=== PATIENT | female | born 1995 | race American Indian/Alaskan Native ===

== ENCOUNTER 2017-03-11 10:47 | Emergency (ER) | payer SELFPAY ==
[2017-03-11 10:54] VITALS: BP 132/90
--- NOTE | 2017-03-11 11:06 | Emergency Department Report ---
ED Lower Extremity HPI - General Chief Complaint: Extremity Injury, Lower Stated Complaint: RT ANKLE PAIN/POSS SPRAIN Time Seen by Provider: 03/11/17 11:01 Source: patient Mode of arrival: Ambulatory Limitations: No Limitations - History of Present Illness MD Complaint: ankle injury -: Sudden Injury: Hip: Left, Pelvis: Left, Thigh: Left, Leg: Left, Knee: Left, Ankle: Right, Foot: Left, Toes: Left Type of Injury: other (sp fall on it on continued pain karon when working at [employer]) Place: home Severity: mild Improves With: immobilization Context: walking Associated Symptoms: swelling (lateral). denies: snap/pop sensation, numbness, tingling - Related Data Allergies Allergy/AdvReac Type Severity Reaction Status Date / Time No Known Allergies Allergy Unverified 03/11/17 10:51 ED Review of Systems ROS: Stated complaint: RT ANKLE PAIN/POSS SPRAIN Other details as noted in HPI Comment: All other systems reviewed and negative Constitutional: no symptoms reported Eyes: as per HPI ENT: as per HPI Respiratory: no symptoms reported Cardiovascular: as per HPI Endocrine: no symptoms reported Gastrointestinal: as per HPI Genitourinary: as per HPI Musculoskeletal: as per HPI, joint swelling. denies: back pain, arthralgia, myalgia Skin: as per HPI. denies: rash Neurological: as per HPI Psychiatric: as per HPI Hematological/Lymphatic: as per HPI ED Past Medical Hx - Past Medical History Previous Medical History?: No - Surgical History Past Surgical History?: No - Family History Family history: no significant - Social History Smoking Status: Current Some Day Smoker Substance Use Type: Alcohol, Marijuana ED Physical Exam - General Limitations: No Limitations General appearance: alert, in no apparent distress - Head Head exam: Present: atraumatic - Eye Eye exam: Present: normal appearance - ENT ENT exam: Present: normal exam, mucous membranes moist - Neck Neck exam: Present: normal inspection. Absent: tenderness, meningismus - Respiratory Respiratory exam: Present: normal lung sounds bilaterally. Absent: respiratory distress, wheezes, rales, rhonchi, stridor - Cardiovascular Cardiovascular Exam: Present: regular rate, normal rhythm, other (hr 90 on exam) . Absent: bradycardia, tachycardia, irregular rhythm - GI/Abdominal GI/Abdominal exam: Present: soft, normal bowel sounds. Absent: distended, tenderness, guarding, rebound, rigid, diminished bowel sounds, hyperactive bowel sounds, hypoactive bowel sounds, organomegaly, mass, bruit, pulsatile mass , hernia - Rectal Rectal exam: Present: deferred - Extremities Exam Extremities exam: Present: normal inspection, full ROM, tenderness - Expanded Lower Extremity Exam Right Hip exam: Present: normal inspection, full ROM. Absent: tenderness, swelling, abrasion Upper Leg exam: Present: normal inspection, full ROM. Absent: tenderness, swelling Knee exam: Present: normal inspection, full ROM. Absent: tenderness, swelling Lower Leg exam: Present: normal inspection, full ROM. Absent: tenderness Ankle exam: Present: normal inspection, full ROM, tenderness, swelling (mild lat mal). Absent: abrasion, laceration, ecchymosis, deformity, crepidus, dislocation, erythema, anterior draw sign Foot/Toe exam: Present: normal inspection, full ROM. Absent: tenderness Neuro vascular tendon exam: Present: no vascular compromise. Absent: pulse deficit, abnormal cap refill, motor deficit, sensory deficit, tendon deficit Gait: Positive: observed and normal. Negative: not tested/not observed, observed and limited by pain 1 - mild swelling 10 d p injury. nv intact. good pulses - Back Exam Back exam: Present: normal inspection, full ROM. Absent: tenderness, CVA tenderness (R), CVA tenderness (L) - Neurological Exam Neurological exam: Present: alert, altered, oriented X3 - Psychiatric Psychiatric exam: Present: normal affect, normal mood, anxious (seesm worried about her stomach) - Skin Skin exam: Present: warm, dry, intact, normal color. Absent: rash ED Course Vital Signs 03/11/17 10:51 Temperature 97.7 F Pulse Rate 96 H Respiratory 20 Rate Blood Pressure 132/90 O2 Sat by Pulse 100 Oximetry - Reevaluation(s) Reevaluation #1: 03/11/17 fall 10 days ago w persistent pain lat mal area ambulatory mild swelling full rom xray noted junaid/crutch for sprain follow up with ortho to be sure heals. vss on dc ED Lower Extremity MDM - Radiology Data Radiology results: image reviewed - Medical Decision Making xray nap - Differential Diagnosis fracture v sprain Critical care attestation.: If time is entered above; I have spent that time in minutes in the direct care of this critically ill patient, excluding procedure time. ED Disposition Clinical Impression: Ankle sprain Disposition: DC- TO HOME OR SELFCARE Is pt being admited?: No Does the pt Need Aspirin: No Condition: Stable Instructions: Ankle Sprain (ED) Additional Instructions: ice rest elevate motrin or tylenol for pain follow up with ortho to be sure this heals junaid bandage until you see ortho crutches to take weight off the ankle allowing it time to heal. follow up ortho. Referrals: MARJORIE NUNEZ MD [Staff Physician] - 3-5 Days Forms: Work/School Release Form(ED) Time of Disposition: 11:29
--- NOTE | 2017-03-11 11:57 | XRay Report ---
Right ankle 3 views: History: Ankle pain. Findings: Soft tissue swelling. No bony or articular abnormality or fracture or dislocation. Impression: No evidence of fracture.
== END 2017-03-11 11:50 | disposition home or self-care (01) ==
LOC: ED 10:47
DX: S93.491A Sprain of other ligament of right ankle, initial encounter (principal); W19.XXXA Unspecified fall, initial encounter; Y93.89 Activity, other specified; Y99.8 Other external cause status; Y92.89 Other specified places as the place of occurrence of the external cause
CPT/HCPCS: 99283